=== PATIENT | female | born 1990 | race Two or more races ===

== ENCOUNTER 2023-02-01 11:00 | Emergency (ER) | payer MEDICAID ==
[~2023-02-01] VITALS: Ht 157.5 cm; Wt 77.2 kg
[2023-02-01 11:23] VITALS: BP 141/78
[2023-02-01] MEDS ORDERED: AZIT4SOL EACH EAR (12:22)
== END 2023-02-01 12:30 | disposition home or self-care (01) ==
LOC: ER 11:00
DX: H92.21 Otorrhagia, right ear (principal); Q17.9 Congenital malformation of ear, unspecified